=== PATIENT | female | born 1950 | race Caucasian/White ===

== ENCOUNTER → 2025-03-01 | Day surgery (SDC) | payer MEDICARE ==
[2025-02-26 10:11] LABS: BASOPHILS % 0.4 % (0.0-1.0); EOSINOPHILS # (AUTO) 0.2 (0.0-0.4); EOSINOPHILS % 2.7 % (0.0-6.0); HEMATOCRIT 40.3 % (34.2-44.1); LYMPHOCYTES # (AUTO) 1.4 (1.0-3.2); LYMPHOCYTES % 19.3 % (18.0-39.1); MEAN CORPUSCULAR HEMOGLOBIN 30.7 pg (28-32); MEAN CORPUSCULAR HGB CONC 32.3 g/dL (31-35); MEAN CORPUSCULAR VOLUME 95.3 fL (81-99); MONOCYTES # (AUTO) 0.7 (0.2-0.8); MONOCYTES % 9.7 % (4.4-11.3); NEUTROPHILS # (AUTO) 4.9 (2.1-6.9); NEUTROPHILS % 67.6 % (38.7-80.0); PLATELET COUNT 238 x10e3/uL (140-360); RED BLOOD COUNT 4.23 x10e6/uL (3.6-5.1); RED CELL DISTRIBUTION WIDTH 13.2 % (11.7-14.4)
[2025-02-26 10:25] LABS: INR 0.92; PROTHROMBIN TIME 12.9 seconds (11.9-14.5)
[2025-02-26 10:26] LABS: PARTIAL THROMBOPLASTIN TIME 25.7 seconds (23.8-35.5)
[2025-02-26 10:29] LABS: ANION GAP 16.2 mmol/L (8-16); CALCIUM 8.9 mg/dL (8.4-10.2); CREATININE, SERUM 1.27 mg/dL (0.57-1.11); POTASSIUM 4.2 mmol/L (3.5-5.1)
[~2025-03-01] MED LIST: ASPIRIN81 MG PO; CRESTOR40 MG PO; EPHEDRINE SULFATE INJ 50 MG/ML VIAL ONE; HYDRALAZINE HC100 MG PO; LEVOTHYROXINE50 MCG PO; LIDOCAINE HCL 2% LOCAL INJ 5 ML SDV VIAL INJ ONE; LOSARTAN POTAS100 MG PO; METOPROLOL SUCC50 MG PO; PROPOFOL IV EMULSION 10 MG/ML 20 ML VIAL ONE; SODIUM CHLORIDE 0.9% 100 ML ONE; SODIUM CHLORIDE 0.9% INJ 10 ML VIAL ONE; VIT D3 PO; ZETIA10 MG PO
[2025-03-01] MEDS: LACTATED RINGER'S 1,000 ML ONE (05:46)
[2025-03-01 07:17] VITALS: TEMP 98.9
[2025-03-01 07:45] VITALS: BP 153/84; PULSE 63; RESP 16; O2SAT 97
== END | disposition home or self-care (01) ==
LOC: OR 05:19
PROVIDERS: ATTEND Internal Medicine Gastroenterology
DX: R10.32 Left lower quadrant pain (principal); D12.0 Benign neoplasm of cecum; K57.30 Diverticulosis of large intestine without perforation or abscess without bleeding; K64.8 Other hemorrhoids; I10 Essential (primary) hypertension; E03.9 Hypothyroidism, unspecified; E66.9 Obesity, unspecified; N28.9 Disorder of kidney and ureter, unspecified; Z78.9 Other specified health status; F32.A Depression, unspecified; Z01.810 Encounter for preprocedural cardiovascular examination; Z01.812 Encounter for preprocedural laboratory examination; Z79.82 Long term (current) use of aspirin; Z79.899 Other long term (current) drug therapy; Z68.41 Body mass index [BMI] 40.0-44.9, adult; Z71.3 Dietary counseling and surveillance
CPT/HCPCS: 36415; 45385; 80048; 85025; 85610; 85730; 88305; 93005; J2003; J2704; J7050; J7121